=== PATIENT | female | born 1965 | race Caucasian/White ===

== ENCOUNTER 2017-02-28 19:22 | Emergency (ER) | payer OTHER ==
--- NOTE | 2017-02-28 19:38 | PDOC ---
Rapid Medical Evaluation Time Seen by Provider: 02/28/17 19:35 Medical Evaluation: Allergies Allergy/AdvReac Type Severity Reaction Status Date / Time codeine Allergy Verified 12/29/15 20:07 metoclopramide HCl Allergy Verified 12/29/15 20:07 [From [facility]in] 02/28/17 19:35 Pt presents to the ED: nausea after inhaling fumes at work ( [facility] [employer]) Pt on brief exam: nauseated, vss Pt ordered for: carboxy hemoglobin Pt to proceed to the ED Discharge Disposition - Diagnosis Nauseated - Referrals - Patient Instructions - Post Discharge Activity
[2017-02-28 19:39] VITALS: TEMP 98.4; BMI 23.3
--- NOTE | 2017-02-28 20:04 | PDOC ---
History of Present Illness - General History Source: Patient Exam Limitations: No Limitations - History of Present Illness Initial Comments: 02/28/17 20:12 The patient is a 51 year old female, with a significant past medical history of diabetes, who presents to the emergency department with dizziness and nausea after possibly inhaling "fumes" while at work at [employer] today. She states she was seated at her desk when she heard an alarm go off at [employer] and "smelled burning chemicals". She states she went to her car and became dizzy while driving. She states she was concerned and drove to this hospital. She reports feeling nauseous and reports four episodes of "orange " emesis prior to her ED arrival. She presents with her sister. LMP 10 years ago. She denies chest pain, shortness of breath, headache. She denies fever, chills, diarrhea and constipation. She denies dysuria, frequency, urgency and hematuria. Allergies: Regaln, codeine Past surgical history: cholecystectomy Social history: Pt denies toxic habits <Rupali Watts - Last Filed: 02/28/17 20:20> <Melody Gamez - Last Filed: 02/28/17 21:45> - General Chief Complaint: Carbon Monoxide Exposure Stated Complaint: NAUSEA/VOMITING Time Seen by Provider: 02/28/17 19:35 Past History <Rupali Watts - Last Filed: 02/28/17 20:20> - Past Medical History Anemia: No Asthma: No Cancer: No Cardiac Disorders: No CVA: No COPD: No CHF: No DVT: No Dementia: No Diabetes: No Dialysis: No GI Disorders: No Disorders: No Hypercholesterolemia: No Kidney Stones: No Liver Disease: No Psychiatric Problems: No Seizures: No Thyroid Disease: No Lung CA: No - Surgical History Abdominal Surgery: Yes Appendectomy: No Cardiac Surgery: No Cholecystectomy: Yes Lung Surgery: No Neurologic Surgery: No Orthopedic Surgery: No - Family Disease History Family Disease History: Diabetes: Mother - Immunization History Immunization Up to Date: Yes - Suicide/Smoking/Psychosocial Hx Smoking History: Never smoked Have you smoked in the past 12 months: No Hx Alcohol Use: No Drug/Substance Use Hx: No Substance Use Type: None Hx Substance Use Treatment: No <Melody Gamez - Last Filed: 02/28/17 21:45> - Past Medical History Allergies/Adverse Reactions: Allergies Allergy/AdvReac Type Severity Reaction Status Date / Time codeine Allergy Verified 02/28/17 19:36 metoclopramide HCl Allergy Verified 02/28/17 19:36 [From Reglan] Home Medications: Ambulatory Orders Desvenlafaxine Succinate [Pristiq] 100 mg PO DAILY 12/29/15 Dextroamphetamine/Amphetamine [Adderall Xr 30 mg Capsule] 40 mg PO DAILY Ondansetron [Zofran Odt -] 4 mg SL TID PRN #10 od.tablet 02/28/17 Review of Systems - Review of Systems Able to Perform ROS?: Yes Comments:: 02/28/17 20:17 GENERAL/CONSTITUTIONAL: No fever or chills. No weakness. HEAD, EYES, EARS, NOSE AND THROAT: No change in vision. No ear pain or discharge. No sore throat. GASTROINTESTINAL: (+) nausea, vomiting after fume inhalation. No diarrhea or constipation. GENITOURINARY: No dysuria, frequency, or change in urination. CARDIOVASCULAR: No chest pain or shortness of breath. RESPIRATORY: (+) "fume inhalation". No cough, wheezing, or hemoptysis. MUSCULOSKELETAL: No joint or muscle swelling or pain. No neck or back pain. SKIN: No rash NEUROLOGIC: (+) Dizziness. No headache, loss of consciousness, or change in strength/sensation. ENDOCRINE: No increased thirst. No abnormal weight change. HEMATOLOGIC/LYMPHATIC: No anemia, easy bleeding, or history of blood clots. ALLERGIC/IMMUNOLOGIC: No hives or skin allergy. <Rupali Watts - Last Filed: 02/28/17 20:20> *Physical Exam - Vital Signs Last Vital Signs Temp Pulse Resp BP Pulse Ox 98.4 F 63 18 140/84 100 02/28/17 19:36 02/28/17 19:36 02/28/17 19:36 02/28/17 19:36 02/28/17 19:36 - Physical Exam Comments: 02/28/17 20:19 Constitutional: Awake, alert, oriented. No acute distress. Head: Normocephalic. Atraumatic Eyes: PERRL. EOMI. Conjunctivae are not pale. ENT: Mucous membranes are moist and intact. Posterior pharynx without exudates or erythema. Uvula midline. Neck: Supple. Full ROM. No lymphadenopathy. Cardiovascular: (+) tachycardic rate. Regular rhythm. S1, S2 regular. Distal pulses are 2+ and symmetric. Pulmonary/Chest: No evidence of respiratory distress. Clear to auscultation bilaterally No wheezing, rales or rhonchi. Abdominal: (+) mild epigastric tenderness to palpation. Soft and non- distended. No rebound, guarding or rigidity. No organomegaly. No palpable masses. Good bowel sounds. Back: No CVA tenderness. Musculoskeletal: No edema. No cyanosis. No clubbing. Full range of motion in all extremities. Nocalf tenderness. Radial/pedal pulses are intact and 2+ bilaterally Skin: Skin is warm and dry. No petechiae. No purpura. Neurological: Alert and oriented to person, place, and time. Cranial nerves II -XII are grossly intact. Normal speech. Strength is grossly symmetric. No sensory deficits. Normal gait. Psychiatric: Good eye contact. Normal interaction, affect and behavior. <Rupali Watts - Last Filed: 02/28/17 20:20> - Vital Signs Last Vital Signs Temp Pulse Resp BP Pulse Ox 98.4 F 63 18 140/84 100 02/28/17 19:36 02/28/17 19:36 02/28/17 19:36 02/28/17 19:36 02/28/17 19:36 <Melody Gamez - Last Filed: 02/28/17 21:45> Medical Decision Making - Medical Decision Making 02/28/17 21:00 a/p; 51yo female presents ambulatory c/o a chemical exposure at work -concerned about CO exposure -states an alarm went off at [facility] where she works and states she smelled a chemical odor -attempted to drive home and felt dizzy and n/v -4 episodes of vomiting -will check ABG to eval for poss carboxyhgb -will give zofran for n/v -will monitor and reassess 02/28/17 21:34 carboxyhgb negative pt states she has been watching her grandson all weekend who was sick and she feels just run down feeling better po challenge given no dizziness now ambulatory in the ED nausea controlled 02/28/17 21:44 pt tolerated po intake in the ED smiling sitting up, laughing with her <Melody Gamez - Last Filed: 02/28/17 21:45> *DC/Admit/Observation/Transfer - Attestations Scribe Attestion: 02/28/17 20:20 Documentation prepared by Rupali Watts, acting as chief medical technologist for Melody Gamez DO, <Rupali Watts - Last Filed: 02/28/17 20:20> - Discharge Dispostion Admit: No - Attestations Physician Attestion: 02/28/17 21:33 I, Dr. Melody Gamez DO, attest that this document has been prepared under my direction and personally reviewed by me in its entirety. I further attest, that it accurately reflects all work, treatment, procedures and medical decision -making performed by me. <Melody Gamez - Last Filed: 02/28/17 21:45> Diagnosis at time of Disposition: Nauseated, Occupational exposure to chemical pollution - Discharge Dispostion Disposition: HOME Condition at time of disposition: Stable - Prescriptions Prescriptions: Ondansetron [Zofran Odt -] 4 mg SL TID PRN #10 od.tablet PRN Reason: Nausea - Referrals Referrals: STAFF,NOT ON [Primary Care Provider] - Hema Kerr MD [Staff Physician] - - Patient Instructions Printed Discharge Instructions: DI for Nausea -- Adult Additional Instructions: Please take all meds as prescribed. Please follow up with your PMD. Please return to the ED with any further complaints or concerns. - Post Discharge Activity Forms/Work/School Notes: Back to Work
[2017-02-28] MEDS ORDERED: ONDANSETRON *ODT* 4 MG TABLET SL ONE (20:10)
[2017-02-28] MEDS ORDERED: ONDANSETRON *ODT* 4 MG TABLET ONE ×2 (20:12→20:14)
[2017-02-28 20:42] LABS: ARTERIAL BLD GAS O2 SATURATION 94.5 % (90-98.9); ARTERIAL BLOOD GAS BASE EXCESS 1.2 meq/l (-2-2); ARTERIAL BLOOD GAS PO2 68.1 mmHg (80-100); ARTERIAL BLOOD GAS pH 7.45 (7.35-7.45); CARBOXYHEMOGLOBIN 0.8 gm% (0.5-2.0)
[2017-02-28 21:21] LABS: ALLENS TEST POSITIVE
[2017-02-28 21:56] VITALS: BP 138/68; PULSE 71
== END 2017-02-28 21:56 | disposition home or self-care (01) ==
LOC: JER 19:22
DX: T59.891A Toxic effect of other specified gases, fumes and vapors, accidental (unintentional), initial encounter (principal); R42 Dizziness and giddiness; Y92.238 Other place in hospital as the place of occurrence of the external cause; Y93.89 Activity, other specified; Y99.0 Civilian activity done for income or pay
CPT/HCPCS: 36600; 82375; 82803; 82962; 83050; 99282-25